=== PATIENT | male | born 1945 | race Caucasian/White ===

== ENCOUNTER 2021-04-16 08:41 | Inpatient (IN) | payer MEDICARE ==
[~2021-04-16] VITALS: Ht 167.6 cm; Wt 59.4 kg
[~2021-04-16 08:41] MED LIST: ALBU90AE INH; ASPI-1497 MT; ATOR40TA70 MT; CARV6.2548 MT; CLOP75TA33 MT; METF-873 PO; TAMS-11 MT
[2021-04-16 10:27] LABS: HEMATOCRIT. 45.5 % (42.0-52.0); HEMOGLOBIN. 15.4 g/dL (14.0-18.0); MEAN CORPUSCULAR HEMOGLOBIN 31.4 pg (28.0-32.0); MEAN CORPUSCULAR VOLUME 92.9 fL (80.0-94.0); MEAN PLATELET VOLUME 10.3 fl (7.4-10.4); PLATELET 186 x1000/uL (130-400); RED CELL DISTRIBUTION WIDTH 13.6 % (11.6-14.6)
[2021-04-16 10:34] LABS: CHLORIDE 102 mEq/L (98-107)
[2021-04-16 11:15] LABS: PLATELET ESTIMATE NORMAL
[2021-04-16] MEDS ORDERED: IOHEXOL-300 100 ML BOTTLE ONE (15:23)
[2021-04-16] MEDS ORDERED: HEPARIN 5000 UNITS/ML VIAL IV SCH (16:00)
[2021-04-16] MEDS ORDERED: HEPARIN 25,000 UNITS PREMIX 250 ML IV PRN (16:00)
[2021-04-16 16:35] LABS: CLARITY URINE CLOUDY (CLEAR); COLOR URINE RED (YELLOW); KETONES URINE NEGATIVE (NEGATIVE); LEUKOCYTE ESTERASE URINE 2+ (NEGATIVE); NITRITE URINE NEGATIVE (NEGATIVE); OCCULT BLOOD URINE 3+ (NEGATIVE); PH URINE 6.5 (4.5-8.0); PROTEIN URINE 1+ (NEGATIVE); SPECIFIC GRAVITY URINE 1.034 (1.005-1.030); UROBILINOGEN URINE 0.2 E.U./dL (0.2-1.0)
[2021-04-16] MEDS: SODIUM CHLORIDE 0.9% 1,000 ML IV SCH ×2 (16:37→18:29)
[2021-04-16] MEDS ORDERED: CEFTRIAXONE 1 G PREMIX 50 ML IV ONE (17:30)
[2021-04-16 23:14] VITALS: BP 134/51
[2021-04-16] MEDS ORDERED: CIPR500S4 PO (23:14)
[2021-04-16] MEDS ORDERED: FURO40TA5 PO (23:14)
[2021-04-16] MEDS ORDERED: LISI10TA26 PO (23:14)
[2021-04-16 23:59] VITALS: BP 145/80
[2021-04-17] MEDS ORDERED: MAGNESIUM/ALUMINUM HYDROXIDE/SIMETHICONE 30ML UDC PO PRN
[2021-04-17] MEDS ORDERED: KETOROLAC 15MG/ML VIAL IV PRN
[2021-04-17] MEDS ORDERED: DEXTROSE 50% WATER 50ML SYRINGE IV PRN
[2021-04-17] MEDS ORDERED: DOCUSATE SODIUM 100MG CAPSULE PO PRN
[2021-04-17] MEDS ORDERED: ZOLPIDEM TARTRATE 5MG TABLET PO PRN
[2021-04-17] MEDS ORDERED: ONDANSETRON HCL 4MG/2ML INJ IV PRN
[2021-04-17] MEDS ORDERED: TRAMADOL 50MG TABLET PO PRN
[2021-04-17] MEDS ORDERED: IPRATROPIUM/ALBUTEROL 0.5-3(2.5)MG/3ML NEB HHN PRN
[2021-04-17] MEDS ORDERED: ACETAMINOPHEN 325MG TABLET PO PRN ×2
[2021-04-17] MEDS ORDERED: CLONIDINE 0.1MG TABLET PO PRN
[2021-04-17] MEDS ORDERED: GUAIFENESIN 200MG/10ML SUGAR FREE UDC PO PRN
[2021-04-17] MEDS ORDERED: NITROGLYCERIN 0.4MG TABLET SL SL PRN
[2021-04-17] MEDS: LEVOFLOXACIN 500MG PREMIX 100 ML IV SCH (01:34)
[2021-04-17 04:00] VITALS: BP 113/61
[2021-04-17] MEDS: BLOOD SUGAR DIAGNOSTIC STRIP TEST SCH ×4 (06:40→21:00)
[2021-04-17 07:12] LABS: BASOPHILS % 0.8 % (0.0-2.0); EOSINOPHILS % 3.9 % (0.0-5.0); HEMATOCRIT. 40.6 % (42.0-52.0); HEMOGLOBIN. 13.7 g/dL (14.0-18.0); LYMPHOCYTES % 12.8 % (20.0-50.0); MEAN CORPUSCULAR HEMOGLOBIN 31.1 pg (28.0-32.0); MEAN CORPUSCULAR VOLUME 92.2 fL (80.0-94.0); MEAN PLATELET VOLUME 10.3 fl (7.4-10.4); MONOCYTES % 8.8 % (2.0-8.0); NEUTROPHILS % 73.7 % (40.0-76.0); PLATELET 177 x1000/uL (130-400); RED CELL DISTRIBUTION WIDTH 13.8 % (11.6-14.6)
[2021-04-17 07:21] LABS: CHLORIDE 106 mEq/L (98-107)
[2021-04-17 07:28] LABS: PHOSPHORUS 2.4 mg/dL (2.5-4.9); TOTAL IRON BINDING CAPACITY 236 ug/dL (250-450)
[2021-04-17 07:30] LABS: CREATINE KINASE 63 IU/L (39-308); CREATINE KINASE MB FRACTION 1.5 ng/mL (0.5-3.6)
[2021-04-17 07:36] LABS: FOLIC ACID (FOLATE) SERUM 16.1 ng/mL (>5.38)
[2021-04-17] MEDS: ASCORBIC ACID 500 MG TABLET PO SCH ×2 (08:10→20:58)
[2021-04-17] MEDS: ZINC SULFATE 220 MG ( 50 ) CAPSULE PO SCH (08:10)
[2021-04-17] MEDS: ASPIRIN 325MG EC TABLET PO SCH (08:10)
[2021-04-17] MEDS: FAMOTIDINE 20MG TABLET PO SCH ×2 (08:10→20:58)
[2021-04-17] MEDS: ENOXAPARIN 40MG/0.4ML SYR SUBCUT SCH (08:10)
[2021-04-17] MEDS: INSULIN LISPRO 100 UNITS/ML SUBCUT SCH ×4 (08:12→20:59)
[2021-04-17 10:58] VITALS: BP 162/63
[2021-04-17] MEDS ORDERED: IOHEXOL-350 100 ML BOTTLE ONE (12:19)
[2021-04-17] MEDS ORDERED: NALOXONE HCL 0.4MG/ML VIAL IV PRN (14:30)
[2021-04-17 16:00] VITALS: BP 151/60
[2021-04-17 17:34] LABS: CREATINE KINASE MB FRACTION 2.6 ng/mL (0.5-3.6)
[2021-04-17 20:00] VITALS: BP 147/62
[2021-04-18] VITALS: BP 112/65
[2021-04-18] MEDS: LEVOFLOXACIN 500MG PREMIX 100 ML IV SCH (00:23)
[2021-04-18 04:00] VITALS: BP 141/62
[2021-04-18] MEDS: BLOOD SUGAR DIAGNOSTIC STRIP TEST SCH ×4 (06:19→21:30)
[2021-04-18] MEDS: INSULIN LISPRO 100 UNITS/ML SUBCUT SCH ×4 (06:19→21:31)
[2021-04-18 06:55] LABS: BASOPHILS % 0.6 % (0.0-2.0); EOSINOPHILS % 1.6 % (0.0-5.0); HEMATOCRIT. 42.1 % (42.0-52.0); HEMOGLOBIN. 14.2 g/dL (14.0-18.0); LYMPHOCYTES % 13.9 % (20.0-50.0); MEAN CORPUSCULAR HEMOGLOBIN 31.2 pg (28.0-32.0); MEAN CORPUSCULAR VOLUME 92.9 fL (80.0-94.0); MEAN PLATELET VOLUME 10.6 fl (7.4-10.4); MONOCYTES % 8.4 % (2.0-8.0); NEUTROPHILS % 75.5 % (40.0-76.0); PLATELET 175 x1000/uL (130-400); RED BLOOD CELL COUNT 4.54 mill/uL (4.7-6.1); RED CELL DISTRIBUTION WIDTH 13.6 % (11.6-14.6)
[2021-04-18 07:06] LABS: CHLORIDE 103 mEq/L (98-107)
[2021-04-18 08:00] VITALS: BP 152/68
[2021-04-18] MEDS: FAMOTIDINE 20MG TABLET PO SCH ×2 (11:27→21:30)
[2021-04-18] MEDS: ENOXAPARIN 40MG/0.4ML SYR SUBCUT SCH (11:27)
[2021-04-18] MEDS: ZINC SULFATE 220 MG ( 50 ) CAPSULE PO SCH (11:27)
[2021-04-18] MEDS: ASCORBIC ACID 500 MG TABLET PO SCH ×2 (11:27→21:30)
[2021-04-18] MEDS: ASPIRIN 325MG EC TABLET PO SCH (11:27)
[2021-04-18 12:00] VITALS: BP 145/68
[2021-04-18 16:00] VITALS: BP 104/47
[2021-04-18 20:00] VITALS: BP 123/60
[2021-04-19] VITALS: BP 126/54
[2021-04-19] MEDS: LEVOFLOXACIN 500MG PREMIX 100 ML IV SCH (00:05)
[2021-04-19 04:00] VITALS: BP 133/58
[2021-04-19] MEDS: INSULIN LISPRO 100 UNITS/ML SUBCUT SCH ×4 (06:21→20:50)
[2021-04-19] MEDS: BLOOD SUGAR DIAGNOSTIC STRIP TEST SCH ×4 (06:21→20:46)
[2021-04-19 08:00] VITALS: BP 141/62
[2021-04-19] MEDS: ASCORBIC ACID 500 MG TABLET PO SCH ×2 (10:12→20:49)
[2021-04-19] MEDS: ZINC SULFATE 220 MG ( 50 ) CAPSULE PO SCH (10:12)
[2021-04-19] MEDS: FAMOTIDINE 20MG TABLET PO SCH ×2 (10:13→20:48)
[2021-04-19 12:00] VITALS: BP 130/52
[2021-04-19 16:00] VITALS: BP 125/51
[2021-04-19 20:00] VITALS: BP 129/53
[2021-04-20] VITALS: BP 135/76
[2021-04-20 04:00] VITALS: BP 142/62
[2021-04-20] MEDS: INSULIN LISPRO 100 UNITS/ML SUBCUT SCH ×3 (06:27→17:10)
[2021-04-20] MEDS: BLOOD SUGAR DIAGNOSTIC STRIP TEST SCH ×3 (06:27→17:21)
[2021-04-20 08:00] VITALS: BP 136/61
[2021-04-20] MEDS: ASCORBIC ACID 500 MG TABLET PO SCH (09:36)
[2021-04-20] MEDS: ZINC SULFATE 220 MG ( 50 ) CAPSULE PO SCH (09:36)
[2021-04-20] MEDS: FAMOTIDINE 20MG TABLET PO SCH (09:36)
[2021-04-20] MEDS ORDERED: LEVOFLOXACIN 500MG TABLET PO SCH (11:00)
[2021-04-20 11:29] LABS: CHLORIDE 105 mEq/L (98-107)
[2021-04-20 11:53] LABS: BASOPHILS % 0.6 % (0.0-2.0); EOSINOPHILS % 3.3 % (0.0-5.0); HEMATOCRIT. 41.5 % (42.0-52.0); HEMOGLOBIN. 13.7 g/dL (14.0-18.0); LYMPHOCYTES % 13.1 % (20.0-50.0); MEAN CORPUSCULAR HEMOGLOBIN 30.8 pg (28.0-32.0); MEAN CORPUSCULAR VOLUME 93.7 fL (80.0-94.0); MEAN PLATELET VOLUME 10.4 fl (7.4-10.4); MONOCYTES % 8.9 % (2.0-8.0); NEUTROPHILS % 74.1 % (40.0-76.0); PLATELET 184 x1000/uL (130-400); RED BLOOD CELL COUNT 4.43 mill/uL (4.7-6.1); RED CELL DISTRIBUTION WIDTH 13.6 % (11.6-14.6)
[2021-04-20 12:00] VITALS: BP 126/58
[2021-04-20 16:00] VITALS: BP 120/45
[2021-04-20 16:47] VITALS: BP 120/45
[2021-04-20] MEDS ORDERED: MIDAZOLAM HCL 5 MG/5 ML VIAL ONE (16:51)
[2021-04-20] MEDS ORDERED: IODIXANOL 320MG/ML 100 ML BOTTLE IV ONE (16:52)
[2021-04-20] MEDS ORDERED: LIDOCAINE HCL 1% 10 MG/ML 10ML VIAL ONE (16:52)
[2021-04-20] MEDS ORDERED: FENTANYL CITRATE/PF 50MCG/ML 5ML VIAL ONE (16:52)
== END 2021-04-20 18:10 | disposition home or self-care (01) | DRG 698 ==
LOC: ER 08:41 → 7EST 17:10 → EDBEDREQTM 17:20 → EDBEDREQ 17:20 → ENRESERV 20:58
PROVIDERS: ADMIT Internal Medicine; ATTEND Internal Medicine
PROC: 0T2BX0Z Change Drainage Device in Bladder, External Approach (ICD-10-PCS; principal; 2021-04-16)
DX: T83.83XA Hemorrhage due to genitourinary prosthetic devices, implants and grafts, initial encounter (principal); E43 Unspecified severe protein-calorie malnutrition; D62 Acute posthemorrhagic anemia; I74.5 Embolism and thrombosis of iliac artery; N13.6 Pyonephrosis; E11.65 Type 2 diabetes mellitus with hyperglycemia; E78.00 Pure hypercholesterolemia, unspecified; I10 Essential (primary) hypertension; Z20.822 Contact with and (suspected) exposure to COVID-19; N32.89 Other specified disorders of bladder; R31.0 Gross hematuria; Y83.8 Other surgical procedures as the cause of abnormal reaction of the patient, or of later complication, without mention of misadventure at the time of the procedure; N40.1 Benign prostatic hyperplasia with lower urinary tract symptoms; Z86.73 Personal history of transient ischemic attack (TIA), and cerebral infarction without residual deficits; Z87.442 Personal history of urinary calculi; Z79.82 Long term (current) use of aspirin; Z68.21 Body mass index [BMI] 21.0-21.9, adult; Z79.2 Long term (current) use of antibiotics; Z79.84 Long term (current) use of oral hypoglycemic drugs; Z79.899 Other long term (current) drug therapy; I25.2 Old myocardial infarction; Y92.098 Other place in other non-institutional residence as the place of occurrence of the external cause
CPT/HCPCS: 36415; 74177; 75635; 80048; 80053; 81003; 82550; 82553; 82607; 82746; 82962; 83036; 83540; 83550; 83735; 84100; 84484; 85025; 87426; 93005; 93306; 93922; 93970; 99285; C1893; J0696; J1650; J1815; J1956; J2250; J3010; J3490; J7040; Q9967

== ENCOUNTER 2022-04-08 01:10 | Emergency (ER) | payer MEDICARE ==
[~2022-04-08] VITALS: Ht 165.1 cm; Wt 63.4 kg
[~2022-04-08 01:10] MED LIST changes: +CIPR500S4 PO; +FURO40TA5 PO; +LISI10TA26 PO
[2022-04-08 01:18] VITALS: BP 148/91
== END 2022-04-08 06:43 | disposition home or self-care (01) ==
LOC: ER 01:10
DX: R33.9 Retention of urine, unspecified (principal); T83.091A Other mechanical complication of indwelling urethral catheter, initial encounter; Y82.8 Other medical devices associated with adverse incidents; Y92.9 Unspecified place or not applicable; E11.9 Type 2 diabetes mellitus without complications; E78.00 Pure hypercholesterolemia, unspecified; I10 Essential (primary) hypertension; I25.2 Old myocardial infarction; Z79.82 Long term (current) use of aspirin; Z86.73 Personal history of transient ischemic attack (TIA), and cerebral infarction without residual deficits; Z90.49 Acquired absence of other specified parts of digestive tract; Z87.442 Personal history of urinary calculi
CPT/HCPCS: 51702; 99284; A4315

== ENCOUNTER 2022-04-30 00:35 | Emergency (ER) | payer MEDICARE ==
[~2022-04-30] VITALS: Ht 157.5 cm; Wt 63.1 kg
[2022-04-30 01:21] VITALS: BP 195/84
== END 2022-04-30 04:00 | disposition home or self-care (01) ==
LOC: ER 00:35
DX: R33.9 Retention of urine, unspecified (principal); T83.018A Breakdown (mechanical) of other urinary catheter, initial encounter; E11.9 Type 2 diabetes mellitus without complications; I51.9 Heart disease, unspecified; N40.0 Benign prostatic hyperplasia without lower urinary tract symptoms; Y82.8 Other medical devices associated with adverse incidents; Y92.9 Unspecified place or not applicable; Z90.49 Acquired absence of other specified parts of digestive tract
CPT/HCPCS: 51702; 99284